=== PATIENT | male | born 1935 | race Caucasian/White ===

== ENCOUNTER → 2017-01-27 | Outpatient (CLI) | payer MEDICARE, OTHER | LOC: RAD 12:41 | DX: N20.1 Calculus of ureter (principal); N28.89 Other specified disorders of kidney and ureter | CPT/HCPCS: 74000 ==

== ENCOUNTER 2020-10-14 17:43 | Emergency (ER) | payer OTHER ==
[~2020-10-14 17:43] MED LIST: CARDURA4 MG PO; CORDARONE 200M200 MG PO; CRESTOR10 MG PO; ECOTRIN81 MG PO; ELIQUIS2.5 MG PO; LASIX20 MG PO; LEVAQUIN500 MG PO; MULTAQ 400 MG400 MG PO; NORCO 10-325 T1 EACH PO; PRINIVIL20 MG PO; PROSCAR5 MG PO; SYNTHROID75 MCG PO; TOPROL XL50 MG PO; ZESTRIL40 MG PO
[2020-10-14] MEDS ORDERED: CEPHALEXIN500 M1 PO (18:47)
== END 2020-10-14 19:23 | disposition home or self-care (01) ==
LOC: ER1 17:43
DX: S60.455A Superficial foreign body of left ring finger, initial encounter (principal); S60.512A Abrasion of left hand, initial encounter; I10 Essential (primary) hypertension; W22.8XXA Striking against or struck by other objects, initial encounter; Z23 Encounter for immunization
CPT/HCPCS: 73130; 90471; 90715; 99283